=== PATIENT | female | born 1980 | race Caucasian/White ===

== ENCOUNTER 2016-11-29 16:08 | Emergency (ER) | payer SELFPAY ==
[~2016-11-29] VITALS: Ht 157.5 cm; Wt 62.0 kg
[2016-11-29 16:09] VITALS: BP 178/94; PULSE 87; RESP 18; TEMP 97.8; O2SAT 100
--- NOTE | 2016-11-29 16:45 | PD ---
HPI Chief Complaint: Suicide Ideation/Attempt Time Seen by Provider: 16:45 Travel History International Travel<30 days: No Contact w/Intl Traveler<30days: No Traveled to known affect area: No History of Present Illness HPI 36-year-old female with history of bipolar disorder presents to the emergency department voluntarily for psychiatric evaluation. Patient is accompanied by her boyfriend. She has fairly recently been started on her new medication regimen through act. She began taking medication 10 weeks ago. She states she has been taking it as prescribed. Recently she has been experiencing increased depression and having active suicidal thoughts with plan to "cut herself." Patient denies any illicit drug use. Denies any other medical history. States that if her boyfriend asleep she will leave to because she does not want to be here. PFSH Past Medical History Bipolar Disorder: Yes Depression: Yes ?: Not LMP: 11/26/16 Social History Alcohol Use: No Tobacco Use: No Substance Use: No Review of Systems Except as stated in HPI: all other systems reviewed are Neg Physical Exam Narrative GENERAL: Well-nourished female patient, tearful but in no acute distress SKIN: Warm and dry. HEAD: Atraumatic. Normocephalic. EYES: Pupils equal and round. No scleral icterus. No injection or drainage. ENT: No nasal bleeding or discharge. Mucous membranes pink and moist. NECK: Trachea midline. No JVD. CARDIOVASCULAR: Regular rate and rhythm. No murmur appreciated. RESPIRATORY: No accessory muscle use. Clear to auscultation. Breath sounds equal bilaterally. GASTROINTESTINAL: Abdomen soft, non-tender, nondistended. Hepatic and splenic margins not palpable. MUSCULOSKELETAL: No obvious deformities. No clubbing. No cyanosis. No edema. NEUROLOGICAL: Awake and alert. No obvious cranial nerve deficits. Motor grossly within normal limits. Normal speech. PSYCHIATRIC: Depressed mood and affect with questionable judgment. Data Data Last Documented VS Vital Signs Date Time Temp Pulse Resp B/P Pulse Ox O2 Delivery O2 Flow Rate FiO2 11/29/16 18:40 102 18 130/85 98 Room Air 11/29/16 16:09 97.8 Orders Complete Blood Count With Diff (11/29/16 16:40) Basic Metabolic Panel (Bmp) (11/29/16 16:40) Psych Screen (11/29/16 16:40) Drug Screen, Random Urine (11/29/16 16:40) Alcohol (Ethanol) (11/29/16 16:40) Ed Urine Pregnancytest Poc (11/29/16 16:53) [place] (Li) (11/29/16 17:03) Labs Laboratory Tests Test 11/29/16 17:00 White Blood Count 10.1 TH/MM3 Red Blood Count 3.99 MIL/MM3 Hemoglobin 12.7 GM/DL Hematocrit 37.7 % Mean Corpuscular Volume 94.5 FL Mean Corpuscular Hemoglobin 31.9 PG Mean Corpuscular Hemoglobin 33.8 % Concent Red Cell Distribution Width 13.1 % Platelet Count 321 TH/MM3 Mean Platelet Volume 8.1 FL Neutrophils (%) (Auto) 58.0 % Lymphocytes (%) (Auto) 32.5 % Monocytes (%) (Auto) 5.6 % Eosinophils (%) (Auto) 3.3 % Basophils (%) (Auto) 0.6 % Neutrophils # (Auto) 5.9 TH/MM3 Lymphocytes # (Auto) 3.3 TH/MM3 Monocytes # (Auto) 0.6 TH/MM3 Eosinophils # (Auto) 0.3 TH/MM3 Basophils # (Auto) 0.1 TH/MM3 CBC Comment DIFF FINAL Differential Comment Sodium Level 143 MEQ/L Potassium Level 4.3 MEQ/L Chloride Level 109 MEQ/L Carbon Dioxide Level 27.4 MEQ/L Anion Gap 7 MEQ/L Blood Urea Nitrogen 7 MG/DL Creatinine 0.93 MG/DL Estimat Glomerular Filtration 69 ML/MIN Rate Random Glucose 88 MG/DL Calcium Level 9.3 MG/DL Urine Opiates Screen NEG Urine Barbiturates Screen NEG Urine Amphetamines Screen NEG Urine Benzodiazepines Screen NEG [place] Level 0.7 MEQ/L Urine Cocaine Screen NEG Urine Cannabinoids Screen POS Ethyl Alcohol Level 4 MG/DL MDM Medical Decision Making Medical Screen Exam Complete: Yes Emergency Medical Condition: Yes Medical Record Reviewed: Yes Differential Diagnosis Mood disorder versus personality disorder versus adjustment reaction disorder versus acute psychosis Narrative Course 36-year-old female presents to emergency department for evaluation. She is tearful verbalizes suicidal ideations with this plan. She also states that she will leave because she does not want to be here. I've discussed the patient was maintained physician Dr. Werner was also assessed the patient and agrees that if the patient leads there is increased risk for her harming herself. She will be placed under a [facility] act at this time. Lab work is without acute concern. Patient is medically cleared to undergo psychiatric screening for further evaluation and disposition. Mental health screening discussed with the patient. Psychiatric screen ordered. Diagnosis Primary Impression: Mood disorder Additional Impression: Suicidal thoughts Condition: Stable Ifeoma Ayala Nov 29, 2016 16:45
[2016-11-29 17:27] LABS: AUTOMATED NEUTROPHIL # 5.9 TH/MM3 (1.8-7.7); BASOPHIL # 0.1 TH/MM3 (0-0.2); BASOPHIL % 0.6 % (0.0-2.0); EOSINOPHIL # 0.3 TH/MM3 (0-0.4); EOSINOPHIL % 3.3 % (0.0-4.0); HEMATOCRIT 37.7 % (35.0-46.0); HEMO FLAGS DIFF FINAL; LYMPH % 32.5 % (9.0-44.0); LYMPHOCYTE # 3.3 TH/MM3 (1.0-4.8); MEAN CELL VOLUME 94.5 FL (80.0-100.0); MEAN CORPUSCULAR HEMOGLOBIN 31.9 PG (27.0-34.0); MEAN CORPUSCULAR HGB CONC 33.8 % (32.0-36.0); MONO % 5.6 % (0.0-8.0); PLATELET COUNT 321 TH/MM3 (150-450); RED BLOOD COUNT 3.99 MIL/MM3 (4.00-5.30); RED CELL DISTRIBUTION WIDTH 13.1 % (11.6-17.2); WHITE BLOOD COUNT 10.1 TH/MM3 (4.0-11.0)
[2016-11-29 17:33] LABS: AMPHETAMINE, URINE NEG (NEG); BARBITURATES, URINE NEG (NEG); COCAINE, URINE NEG (NEG)
[2016-11-29 17:40] LABS: BICARBONATE 27.4 MEQ/L (21.0-32.0); POTASSIUM 4.3 MEQ/L (3.5-5.1)
[2016-11-29 18:40] VITALS: BP 130/85; PULSE 102; RESP 18; O2SAT 98
[2016-11-29] MEDS ORDERED: HYDR-3133 PO (19:49)
[2016-11-29] MEDS ORDERED: ZYPR5TAB PO (19:49)
[2016-11-29] MEDS ORDERED: LITH600C PO (19:49)
[2016-11-29] MEDS ORDERED: LITH300C2 PO (19:49)
== END 2016-11-29 21:55 ==
LOC: NEPJ 16:08
DX: F39 Unspecified mood [affective] disorder (principal); R45.851 Suicidal ideations; Z86.59 Personal history of other mental and behavioral disorders
CPT/HCPCS: 80048; 80178; 80307; 80320; 84703; 85025; 99285